=== PATIENT | male | born 1960 | race Hispanic/Latino ===

== ENCOUNTER 2025-03-20 20:55 | Emergency (ER) | payer OTHER, MEDICARE ==
[~2025-03-20] VITALS: Ht 172.7 cm; Wt 77.6 kg
[2025-03-20 20:58] VITALS: TEMP 98.6
--- NOTE | 2025-03-20 21:33 | EKG ---
[facility] Test Date: 2025-03-20 Test Time: 21:30:48 Pat Name: DIANA CLEMONS Department: ED Room: Gender: M Motion Picture Commentator: [id number] : 1960 Requested By: KRYSTAL SULLIVAN Order Number: [id number] Reading MD: Nito Jones Measurements Intervals [place] Rate: 79 P: 64 PA: 143 QRS: 63 QRSD: 88 T: 71 QT: 391 QTc: 450 Interpretive Statements Sinus rhythm No previous ECG available for comparison Electronically Signed On 03-21-2025 13:29:15 CDT by Nito Jones Please click the below link to view image of tracing.
[2025-03-20] MEDS: 0.9%NACL 1000ML 1,000 ML IV ONE (21:49)
--- NOTE | 2025-03-20 21:54 | ERN ---
ED Note History of Present Illness Stated Complaint: C/O "SHIVERS, CHILLS, SHAKING" Chief Complaint: Other Problems Time Seen by MD: 21:04 Dictation: This is a 64-year-old male who began experiencing shivers chills and shaking starting from earlier this a.m.. There was no witnessed episode however he thinks he passed out but unable to give me any details. This evening he was apparently discussing with his son who insisted and instructed him to come to the ER for further evaluation No chest pain diaphoresis pressure, palpitations. No cough sputum or hemoptysis. Temperature 98.6 pulse 78 respirations 20 blood pressure 129/83 with a pulse oximetry of 98%. Allergies: Coded Allergies: No Known Allergies (Unverified Allergy, Unknown, 03/20/25) Past Medical History Past Medical History: No Pertinent History Surgical History: None Family History: Negative Social History: Drugs (Marijuana and cocaine), ETOH RN Note Reviewed/Agreed w/PFSH: Yes Review of System Dictation Constitutional: Negative for fever,chills, and weight loss Eyes: Negative for injury, pain,redness, and discharge ENT: Negative for injury,pain or swelling Cardiovascular: Negative for chest pain, palpitations, and edema Respiratory: Negative for shortness of breath, cough, and wheezing, Abdomen/GI: Negative for abdominal pain, nausea, vomiting, diarrhea, and constipation Back: Negative for injury and pain : Negative for injury, bleeding and discharge MS/Extremity: Negative for injury and deformity Skin: Negative for rash, and discoloration Neuro: Negative for headache, weakness, numbness, tingling, and seizure Psych: Negative for suicide ideation, homicidal ideation, and hallucinations Initial Vital Sign VS Vital Signs Date Time Temp Pulse Resp B/P (MAP) Pulse Ox O2 Delivery O2 Flow Rate FiO2 03/20/25 20:58 98.6 78 20 129/83 96 Room Air 03/20/25 20:58 0 21 Physical Exam Dictation General: awake, alert, NAD Head/Face: Normocephalic, atraumatic Eyes: PERRL, EOMI, vision at baseline ENT: oral cavity clear, TMs clear, no signs of infection Neck: Trachea midline, supple, no nuchal rigidity Cardiovascular: RRR, normal S1/S2, No MRGs, no JVD Respiratory: CTAB, no respiratory distress, No rales or wheezes Abdomen: Soft, non-tender, non-distended, normal bowel sounds, no guarding or rebound. Skin: Warm, dry, normal turgor, no rash MS/Extremity: Pulses equal, no cyanosis, neurovascular intact, FROM Neuro: COAx4, GCS 15, strength 5/5, CN 2-12 intact, normal cerebellar exam, normal gait, Psych: Normal behavior, mood, and affect normal Extremities-trace edema without any palpable cords, Homans sign is negative Results (Laboratory/Radiology) Laboratory/Radiology Laboratory Tests Test 03/20/25 21:30 03/20/25 21:35 Urine Color YELLOW (YELLOW) Urine Appearance CLEAR (CLEAR) Urine pH 6.5 (5.0-8.0) Urine Specific [place] 1.026 (1.001-1.031) Urine Protein NEGATIVE mg/dL (NEGATIVE) Urine Glucose (UA) 50 mg/dL (NEGATIVE) H Urine Ketones NEGATIVE mg/dL (NEGATIVE) Urine Occult Blood NEGATIVE (NEGATIVE) Urine Nitrate NEGATIVE (NEGATIVE) Urine Bilirubin NEGATIVE mg/dL (NEGATIVE) Urine Urobilinogen 3 mg/dL (0.2-1.0) H Urine Leukocyte Esterase NEGATIVE Mateo/uL Urine RBC 2-5 /HPF (0-1) H Urine WBC 2-5 /HPF (0-1) H Urine Squamous Epithelial Cells RARE /HPF (0-2) Urine Bacteria None /HPF (None Seen) Urine Opiates Screen NEGATIVE (NEGATIVE) Urine Barbiturates Screen NEGATIVE (NEGATIVE) Urine Phencyclidine Screen NEGATIVE (NEGATIVE) Urine Amphetamines Screen NEGATIVE (NEGATIVE) Urine Benzodiazepines Screen NEGATIVE (NEGATIVE) Urine Cocaine Screen POSITIVE (NEGATIVE) H Urine Marijuana (THC) Screen POSITIVE (NEGATIVE) H White Blood Count 9.7 K/uL (4.8-10.8) Red Blood Count 4.29 MIL/uL (4.50-6.20) L Hemoglobin 13.6 g/dL (14.0-18.0) L Hematocrit 42.2 % (42-54) Mean Corpuscular Volume 98.4 fL (79-99) Mean Corpuscular Hemoglobin 31.7 pg (27.0-33.0) Mean Corpuscular Hemoglobin Concent 32.2 g/dL (32.0-36.0) Red Cell Distribution Width 12.5 % (11.0-15.5) Platelet Count 296 K/uL (130-400) Mean Platelet Volume 10.2 fL (7.5-10.5) Immature Granulocyte % (Auto) 0.4 % (0-1) Neutrophils (%) (Auto) 55.3 % (40.0-77.0) Lymphocytes (%) (Auto) 29.4 % (21.0-51.0) Monocytes (%) (Auto) 10.4 % (3.0-13.0) Eosinophils (%) (Auto) 3.8 % (0.0-8.0) Basophils (%) (Auto) 0.7 % (0.0-5.0) Neutrophils # (Auto) 5.4 K/uL (1.8-7.7) Lymphocytes # (Auto) 2.9 K/uL (1.0-4.8) Monocytes # (Auto) 1.0 K/uL (0.1-1.0) Eosinophils # (Auto) 0.37 K/uL (0.00-0.70) Basophils # (Auto) 0.07 K/uL (0.00-0.20) Absolute Immature Granulocyte (auto 0.04 K/uL (0-1) Nucleated Red Blood Cells 0.0 % (0.0-0.19) Sodium Level 138 mmol/L (136-145) Potassium Level 3.9 mmol/L (3.5-5.1) Chloride Level 103 mmol/L (101-111) Carbon Dioxide Level 33 mmol/L (21-32) H Blood Urea Nitrogen 14 mg/dL (7-18) Creatinine 0.9 mg/dL (0.5-1.3) Glomerular Filtration Rate Calc 95 mL/min (>90) Random Glucose 108 mg/dL (70-105) H Total Calcium 8.7 mg/dL (8.5-10.1) Ammonia 11 umol/L (11-32) Total Creatine Kinase 151 U/L (21-232) Troponin I High Sensitivity 5.1 ng/L (4-75) Serum Alcohol < 3 mg/dL (0-10) Labs Reviewed?: Yes EKG Comment: Twelve lead EKG done on 03/20/2025 at 9:30 p.m. showed a heart rate of 79, WI interval 143, QRS 88, QT/QTC 391/450 Impression normal sinus rhythm with no acute STT wave changes. EKG rhythm strip normal sinus rhythm with no acute STT elevations noted but overall slightly low voltage in the inferior and anterior leads. Interpreted by ER MD Dr. Sullivan ED Course ED Course Orders Procedure Category Date Status Time Alcohol, Blood LAB 03/20/25 In Process 21:11 Ammonia LAB 03/20/25 In Process 21:11 Cbc With Differential LAB 03/20/25 Complete 21:11 Basic Metabolic Panel LAB 03/20/25 In Process 21:11 Urinalysis Profile LAB 03/20/25 Complete 21:11 12 Lead Ekg Tracing- EKG 03/20/25 Complete Technical 21:11 Chest 1vw RAD 03/20/25 Taken 21:11 Cardiac Panel LAB 03/20/25 In Process 21:11 Ct Head/Brain W/O CT 03/20/25 Resulted Contrast 21:11 0.9%Nacl 1000ml (Ns PHA 03/20/25 In Process 1000ml) 21:30 Drug Screen Urine LAB 03/20/25 Complete 21:15 Current Medications Medications (Trade) Dose Ordered Sig/Lena Route PRN Reason Start Time Stop Time Status Last Admin Dose Admin Sodium Chloride 1,000 ml @ 125 mls/hr ONCE ONCE IV 03/20/25 21:30 03/21/25 05:29 03/20/25 21:49 Vital Signs Date Time Temp Pulse Resp B/P (MAP) Pulse Ox O2 Delivery O2 Flow Rate FiO2 03/20/25 20:58 98.6 78 20 129/83 97 Room Air* 0 21 03/20/25 20:58 98.6 78 20 129/83 96 Room Air We will perform diagnostic labs, advanced imaging and administer medications according to the patient's complaint. Once the results are available, will review and personally interpreted the labs to rule out any acute life- threatening emergency the trach require immediate intervention and treatment. I will then re-evaluate the patient after treatment and diagnostic exams have return to determine whether the patient requires any further testing, can safely be discharged home or need further admission to hospital for additional treatment and evaluation. 10:28 p.m. Labs reviewed CBC is with a normal limits BNP 7 is normal. Urinalysis is positive for glucose urobilinogen but no evidence of any infection. UDS is positive for THC and cocaine. Chest x-ray shows dirty lungs suggestive of chronic bronchitis or perhaps recreational drug inhalation injury. Medical Decision Making MDM MDM: Differential diagnosis: Anxiety attack, recreational drug effects, cardiac effect, panic attack Rationale: Tests considered and ordered secondary to shared decision making include: Previous outside records reviewed: Old ER visits. Risk of complication and/or morbidity or mortality of patient management: None Medications-Per medication reconciliation Need for hospitalization: Patient does not meet criteria for hospitalization. Need for emergency major/minor surgery: No There are no social concerns with this patient. Prescription drug management Prescriptions will include symptomatic care Patient's prior external medical records from other ER visits were reviewed by me as indicated. Prior testing and results from previous visits were reviewed. Prior tests were taken into account with medical decision making and resource utilization, independent historian/historians were used to obtain complete medical history. I independently interpreted the test that were performed, results were reviewed by me and considered findings on radiology if ordered. Medical management and examination interpretation discussions were had by me wi th other qualified healthcare professionals as indicated for the patient's care. Problem List Problem List: (1) Anxiety (2) Cocaine intoxication (3) Marijuana dependence DX & DISP Disposition: Discharge Departure Impression: Primary Impression: Anxiety Additional Impressions: Cocaine intoxication, Marijuana dependence Condition: Stable Additional Instructions: Patient and the caregiver have been informed of all the diagnostic tests and the imaging conducted during the today's visit to the emergency room and has verbalized understanding of the results I have personally reviewed and interpreted all diagnostic exams performed here in the ER today as well as the vital signs documented by the nursing staff. The patient is now being discharged to home and should follow up with the primary care physician or the specialist as directed by the ER staff. Follow-up with primary care provider in 1 to 2 days. Take medications as directed here in the emergency room. Okay to continue home medications unless otherwise discussed during your visit in the emergency room today. Return to your nearest emergency room if symptoms worsen or if there is no improvement. Call 911 if you need immediate assistance. Take Tylenol or Motrin [id number] as needed and if no contraindications are present. Increase oral hydration. A wound culture or urine culture was ordered here in the emergency room department please follow-up with primary care provider and advise them to get repeat ports from our facility. If you had any Zeus wrap/splints that were applied here, please do not remove them until you see your primary care or specialty. Extensive counseling on smoking cessation, cocaine and marijuana abstinence, lifestyle modification discussed. Patient's daughter at bedside I also recommended that patient needs to address anxiety and depression. He lives by himself and he is unable to work due to vision issues. I also recommended that because of his complex I issues to be seen in [facility] setting. Referrals: NONE (PCP) KRYSTAL SULLIVAN MD Mar 20, 2025 21:54
--- NOTE | 2025-03-20 22:04 | HMCIMG ---
Exam Type: CT HEAD/BRAIN W/O CONTRAST Clinical Information: Syncope Comparison: None CT Dose Index (CTDI): 57.33 mGy Dose Length Product (DLP): 956.79 total mGy-cm Findings: There is low attenuation throughout the periventricular white matter locations, consistent with chronic small vessel ischemic changes. No acute intra- or extra-axial fluid collections are seen. There is no evidence of acute or chronic hemorrhage. There is no mass effect or shift of midline structures. There are no areas to suggest acute infarct. The skull windows show no significant abnormalities. IMPRESSION: 1. CHRONIC SMALL VESSEL ISCHEMIC CHANGES.
[2025-03-20 22:07] LABS: BASOPHILS # (AUTO) 0.07 K/uL (0.00-0.20); BASOPHILS % (AUTO) 0.7 % (0.0-5.0); EOSINOPHILS # (AUTO) 0.37 K/uL (0.00-0.70); EOSINOPHILS % (AUTO) 3.8 % (0.0-8.0); HEMATOCRIT 42.2 % (42-54); IMMATURE GRANULOCYTE ABSOLUTE 0.04 K/uL (0-1); LYMPHOCYTES # (AUTO) 2.9 K/uL (1.0-4.8); LYMPHOCYTES % (AUTO) 29.4 % (21.0-51.0); MEAN CORPUSCULAR HEMOGLOBIN 31.7 pg (27.0-33.0); MEAN CORPUSCULAR HGB CONC 32.2 g/dL (32.0-36.0); MEAN CORPUSCULAR VOLUME 98.4 fL (79-99); MONOCYTES % (AUTO) 10.4 % (3.0-13.0); NEUTROPHILS # (AUTO) 5.4 K/uL (1.8-7.7); NEUTROPHILS % (AUTO) 55.3 % (40.0-77.0); PLATELET COUNT (AUTO) 296 K/uL (130-400); RED BLOOD CELL COUNT(AUTO) 4.29 MIL/uL (4.50-6.20); RED CELL DISTRIBUTION WIDTH 12.5 % (11.0-15.5); WHITE BLOOD COUNT (AUTO) 9.7 K/uL (4.8-10.8)
[2025-03-20 22:13] LABS: APPEARANCE,URINE CLEAR (CLEAR); BILIRUBIN,URINE NEGATIVE (NEGATIVE); COLOR,URINE YELLOW (YELLOW); GLUCOSE, URINE (UA) 50 mg/dL (NEGATIVE); KETONES,URINE NEGATIVE (NEGATIVE); LEUKOCYTE ESTERASE ,URINE NEGATIVE Leu/uL (NEGATIVE); NITRATE,URINE NEGATIVE (NEGATIVE); OCCULT BLOOD,URINE NEGATIVE (NEGATIVE); PH,URINE 6.5 (5.0-8.0); PROTEIN,URINE NEGATIVE (NEGATIVE); UROBILINOGEN,URINE 3 mg/dL (0.2-1.0)
[2025-03-20 22:15] LABS: ADD UA MICROSCOPIC YES
[2025-03-20 22:16] LABS: MUCUS,URINE RARE LPF (None Seen); SQUAMOUS EPITHELIAL CELL,UR RARE /HPF (0-2)
[2025-03-20 22:19] LABS: CARBON DIOXIDE 33 mmol/L (21-32); CHLORIDE 103 mmol/L (101-111); CREATININE 0.9 mg/dL (0.5-1.3); GLOMERULAR FILTR. RATE CALC 95 mL/min (>90); GLUCOSE,RANDOM 108 mg/dL (70-105); POTASSIUM 3.9 mmol/L (3.5-5.1); SODIUM SERUM 138 mmol/L (136-145); UREA NITROGEN, BLOOD 14 mg/dL (7-18)
[2025-03-20 22:21] LABS: AMPHET/METH SCREEN,URINE NEGATIVE (NEGATIVE); BARBITURATE SCREEN, URINE NEGATIVE (NEGATIVE); BENZODIAZEPINES SCREEN,URINE NEGATIVE (NEGATIVE); CANNABINOID SCREEN,URINE POSITIVE (NEGATIVE); COCAINE SCREEN,URINE POSITIVE (NEGATIVE); OPIATE SCREEN,URINE NEGATIVE (NEGATIVE); PHENCYCLIDINE SCREEN,URINE NEGATIVE (NEGATIVE)
[2025-03-20 22:27] LABS: AMMONIA 11 umol/L (11-32); CREATINE KINASE, TOTAL 151 U/L (21-232)
[2025-03-20 22:31] LABS: ALCOHOL, BLOOD < 3 mg/dL (0-10)
[2025-03-20 23:10] VITALS: BP 122/78; PULSE 72; RESP 18; O2SAT 97
[2025-03-20] MEDS: ketOROlac 30MG VIAL (30MG/ML) ONE (23:11)
[2025-03-20] MEDS: ketOROlac 30MG VIAL (30MG/ML) IM ONE (23:11)
--- NOTE | 2025-03-21 17:14 | HMCIMG ---
CHEST 1VW HISTORY: Chills and fevers COMPARISON: None FINDINGS: A frontal projection of the chest was obtained. Mild bilateral pulmonary infiltrates are seen. The heart is borderline enlarged. Degenerative changes are seen. Aortic calcifications are seen. IMPRESSION: 1. Bilateral pulmonary infiltrates.
== END 2025-03-20 23:33 | disposition home or self-care (01) ==
LOC: EDH 20:55
DX: F41.9 Anxiety disorder, unspecified (principal); F12.20 Cannabis dependence, uncomplicated; F14.129 Cocaine abuse with intoxication, unspecified
CPT/HCPCS: 99285; 96360; 70450; 71045; 82550; 84484; 80048; 80305; 82140; 85025; 36415; 93005; 96372; 81001; J1885; J7030; 99283